=== PATIENT | female | born 1960 | race Caucasian/White ===

== ENCOUNTER 2021-07-11 13:58 | Outpatient (CLI) | payer MEDICARE, SELFPAY ==
--- NOTE | 2021-07-11 09:45 | DI.RAD_ITS ---
Exam(s) XR HIP LT COMPLETE AP PELVIS EXAM: XR HIP LT COMPLETE AP PELVIS CLINICAL HISTORY: left hip pain. TECHNIQUE: 2D digital imaging was performed. COMPARISON: No exams were available for comparison FINDINGS: There is no evidence of pelvic nor hip fracture. No obvious hip joint space narrowing. Mild degener ative changes, these being more evident in the left hip. No significant osseous lesions. Sacroiliac joints appear unremarkable pubic rami appear unremarkable IMPRESSION: Mild degenerative changes in the left hip. No fractures. Incidentally noted are calcifications in the central left side of the pelvis. These may be within ut erine fibroids and possibly in the left uterus. Other possibly would be within sigmoid diverticuli. DATA REPOSITORY: RADIATION DOSE DELIVERED:
== END 2021-07-11 13:59 | disposition home or self-care (01) ==
LOC: DIORS 13:59
PROVIDERS: PCP Nurse Practitioner Family; Referring Provider Nurse Practitioner Family; Visit Provider Student in an Organized Health Care Education/Training Program
DX: M25.552 Pain in left hip (principal); M16.12 Unilateral primary osteoarthritis, left hip
CPT/HCPCS: 99203; 73502

== ENCOUNTER 2023-02-20 03:23 | Outpatient (RCR) | payer OTHER, SELFPAY ==
[2023-02-13 10:10] VITALS: BP 135/84; PULSE 106
[2023-02-13] MEDS: IRON SUCROSE COMPLEX 200 MG in Normal Saline 100 ML 440 MG IVPB (10:35)
[2023-02-13] MEDS: Normal Saline Flush 10 ML SYR IVP (10:36)
[2023-02-20] MEDS: IRON SUCROSE COMPLEX 200 MG in Normal Saline 100 ML 440 MG IVPB (13:04)
[2023-02-20] MEDS: Normal Saline Flush 10 ML SYR IVP (13:04)
== END 2023-02-21 23:59 | disposition home or self-care (01) ==
LOC: INF 03:23
PROVIDERS: PCP Nurse Practitioner Family; Visit Provider Family Medicine
DX: K51.90 Ulcerative colitis, unspecified, without complications (principal)
CPT/HCPCS: 96365; J1756

== ENCOUNTER 2023-03-21 02:21 | Outpatient (RCR) | payer OTHER, SELFPAY ==
[2023-02-22 00:10] VITALS: BP 135/84; PULSE 106
[2023-02-27] MEDS: IRON SUCROSE COMPLEX 200 MG in Normal Saline 100 ML 440 MG IVPB (13:09)
[2023-02-27] MEDS: Normal Saline Flush 10 ML SYR IVP (13:09)
[2023-03-06] MEDS: Acetaminophen 325 MG TAB 650 MG PO (13:06)
[2023-03-06] MEDS: Loratidine 10 MG TAB (13:06)
[2023-03-06] MEDS: Normal Saline Flush 10 ML SYR IVP (13:06)
[2023-03-06] MEDS: VEDOLIZUMAB 300 MG in Normal Saline 250 ML 500 MG IVPB (13:27)
[2023-03-21 13:28] LABS: Abs Immature Grans 0.04 10^3/uL (0.0-0.06); Absolute Basophil Count 0.05 10^3/uL (0.0-0.2); Absolute Eosinophil Count 0.03 10^3/uL (0.0-0.7); Absolute Lymphocyte Count 1.66 10^3/uL (1.2-3.4); Absolute Monocyte Count 0.32 10^3/uL (0.1-0.8); Absolute Neutrophil Count 7.75 10^3/uL (1.2-6.7); Basophils % 0.5; Eosinophils % 0.3; HCT 43.8 % (36.0-46.0); HGB 13.8 g/dL (11.2-15.7); Immature Grans % 0.4; Lymphocytes % 16.9; MCH 25.7 pg (27.0-33.0); MCHC 31.5 % (32.0-36.0); MCV 82 fL (80-95); MPV 9.2 fL (8.0-11.0); Monocytes % 3.2; Neutrophils % 78.7; Platelet Count 364 10^3/uL (130-400); RBC 5.37 10^6/uL (3.93-5.22); RDW 22.9 % (11.7-14.6); RDW-SD 65.9 fL; WBC 9.85 10^3/uL (4.4-10.8)
[2023-03-21] MEDS: VEDOLIZUMAB 300 MG in Normal Saline 250 ML 500 MG IVPB (13:29)
[2023-03-21] MEDS: Normal Saline Flush 10 ML SYR IVP (13:29)
[2023-03-21 14:49] LABS: Diff Comment Diff Reviewed
[2023-03-21 14:50] LABS: Anisocytosis 2+
[2023-03-21 14:51] LABS: Iron 70 ug/dL (50-170); Total Iron Binding Capacity 343 ug/dL (250-450); Transferrin Sat 20 % (15-50)
[2023-03-21 14:53] LABS: Ferritin 79 ng/mL (8-252)
== END 2023-03-23 23:59 | disposition home or self-care (01) ==
LOC: INF 02:21
PROVIDERS: Nurse Practitioner Primary Care; PCP Nurse Practitioner Family; Visit Provider Family Medicine
DX: D50.9 Iron deficiency anemia, unspecified (principal)
CPT/HCPCS: 96365; 82728; 83540; 83550; 85025; J1756; J3380

== ENCOUNTER 2023-04-18 03:22 | Outpatient (RCR) | payer OTHER, SELFPAY ==
[2023-03-24 00:05] VITALS: BP 135/84; PULSE 106
[2023-04-18 13:20] LABS: Abs Immature Grans 0.05 10^3/uL (0.0-0.06); Absolute Basophil Count 0.07 10^3/uL (0.0-0.2); Absolute Eosinophil Count 0.08 10^3/uL (0.0-0.7); Absolute Monocyte Count 0.43 10^3/uL (0.1-0.8); Absolute Neutrophil Count 7.01 10^3/uL (1.2-6.7); Basophils % 0.7; Eosinophils % 0.8; HCT 42.9 % (36.0-46.0); HGB 13.6 g/dL (11.2-15.7); Immature Grans % 0.5; Lymphocytes % 21.6; MCH 26.5 pg (27.0-33.0); MCHC 31.7 % (32.0-36.0); MCV 84 fL (80-95); MPV 9.6 fL (8.0-11.0); Monocytes % 4.4; Platelet Count 337 10^3/uL (130-400); RBC 5.13 10^6/uL (3.93-5.22); RDW 20.7 % (11.7-14.6); WBC 9.74 10^3/uL (4.4-10.8)
[2023-04-18] MEDS: VEDOLIZUMAB 300 MG in Normal Saline 250 ML 500 MG IVPB (13:28)
[2023-04-18] MEDS: Normal Saline Flush 10 ML SYR IVP (13:28)
[2023-04-18 13:33] LABS: Anisocytosis 2+; Diff Comment RBC Morph Reviewed
[2023-04-18 13:53] LABS: ALT 20 U/L (14-59); AST 23 U/L (15-37); Albumin 3.6 g/dL (3.4-5.0); Alkaline Phosphatase 78 U/L (46-116); Anion Gap 11.4 mmol/L (3-11); BUN 20 mg/dL (7-18); Bilirubin, Total 0.3 mg/dL (0.2-1.0); C-Reactive Protein 0.29 mg/dL (0.0-0.3); CO2 23.6 mmol/L (21.0-32.0); CREATININE 1.1 mg/dL (0.55-1.02); Chloride 105 mmol/L (98-107); Estimated GFR 56.11 (mL/min/1.73m2); Glucose 103 mg/dL (74-106); Potassium 4.7 mmol/L (3.5-5.1); Sodium 140 mmol/L (136-145); Total Protein 7.1 g/dL (6.4-8.2)
[2023-04-18 14:20] LABS: Ferritin 27 ng/mL (8-252)
== END 2023-04-23 23:59 | disposition home or self-care (01) ==
LOC: INF 03:22
PROVIDERS: PCP Nurse Practitioner Family; Visit Provider Family Medicine
DX: K51.90 Ulcerative colitis, unspecified, without complications (principal)
CPT/HCPCS: 36415; 80053; 96365; 82728; 83540; 83550; 85025; 86140; J3380

== ENCOUNTER 2023-04-26 03:53 | Outpatient (RCR) | payer MEDICARE, OTHER, SELFPAY ==
[2023-04-26 13:06] LABS: Hemoglobin A1C 5.8 % (<5.7)
[2023-04-26 13:27] LABS: Ferritin 24 ng/mL (8-252)
[2023-04-26 13:34] LABS: Iron 59 ug/dL (50-170); Total Iron Binding Capacity 336 ug/dL (250-450); Transferrin Sat 18 % (15-50)
== END 2023-05-24 23:59 | disposition home or self-care (01) ==
LOC: INF 03:53
PROVIDERS: PCP Nurse Practitioner Family; Visit Provider Internal Medicine
DX: K51.90 Ulcerative colitis, unspecified, without complications (principal); D64.9 Anemia, unspecified; R73.03 Prediabetes
CPT/HCPCS: 36415; 82728; 83036; 83540; 83550

== ENCOUNTER 2023-06-13 02:55 | Outpatient (RCR) | payer MEDICARE, OTHER, SELFPAY ==
[2023-04-24 00:11] VITALS: BP 135/84; PULSE 106
[2023-06-01] MEDS: Normal Saline Flush 10 ML SYR IVP (13:00)
[2023-06-01] MEDS: IRON SUCROSE COMPLEX 200 MG in Normal Saline 100 ML 440 MG IVPB (13:01)
[2023-06-13] MEDS: VEDOLIZUMAB 300 MG in Normal Saline 250 ML 500 MG IVPB (13:25)
[2023-06-13] MEDS: Normal Saline Flush 10 ML SYR IVP (13:25)
== END 2023-06-23 23:59 | disposition home or self-care (01) ==
LOC: INF 02:55
PROVIDERS: PCP Nurse Practitioner Family; Visit Provider Family Medicine
DX: D50.9 Iron deficiency anemia, unspecified (principal)
CPT/HCPCS: 96365; J1756; J3380

== ENCOUNTER 2023-08-22 02:57 | Outpatient (RCR) | payer MEDICARE, OTHER, SELFPAY ==
[2023-06-24 00:10] VITALS: BP 135/84; PULSE 106
[2023-08-07] VITALS (7 sets, daily range): BP systolic 119–133; BP diastolic 72–86; PULSE 61–68; RESP 16–18; TEMP 36.2–36.7; O2SAT 95–97
[2023-08-07] MEDS: Normal Saline Flush 10 ML SYR IVP (12:21)
[2023-08-07] MEDS: inFLIXimab 600 MG in Normal Saline 250 ML 125 MG IVPB (12:21)
[2023-08-07 12:25] LABS: Iron 86 ug/dL (50-170); Total Iron Binding Capacity 320 ug/dL (250-450); Transferrin Sat 27 % (15-50)
[2023-08-22] VITALS (7 sets, daily range): BP systolic 122–145; BP diastolic 70–85; PULSE 69–85; RESP 17; TEMP 35.6–36.6; O2SAT 95–98
[2023-08-22] MEDS: Normal Saline Flush 10 ML SYR IVP (11:38)
[2023-08-22] MEDS: inFLIXimab 600 MG in Normal Saline 250 ML 125 MG IVPB (11:50)
[2023-08-22 12:12] LABS: Abs Immature Grans 0.07 10^3/uL (0.0-0.06); HCT 45.2 % (36.0-46.0); HGB 14.5 g/dL (11.2-15.7); MCH 28.7 pg (27.0-33.0); MCHC 32.1 % (32.0-36.0); MCV 90 fL (80-95); MPV 9.8 fL (8.0-11.0); Platelet Count 356 10^3/uL (130-400); RBC 5.05 10^6/uL (3.93-5.22); RDW 15.9 % (11.7-14.6); RDW-SD 52.5 fL; WBC 12.79 10^3/uL (4.4-10.8)
[2023-08-22 12:17] LABS: Absolute Basophil Count 0.13 10^3/uL (0.0-0.2); Absolute Eosinophil Count 0.13 10^3/uL (0.0-0.7); Absolute Lymphocyte Count 4.86 10^3/uL (1.2-3.4); Absolute Monocyte Count 1.28 10^3/uL (0.1-0.8); Diff Comment Manual Differential; RBC Morphology Normal
[2023-08-22 12:23] LABS: ALT 18 U/L (14-59); AST 6 U/L (15-37); Albumin 3.6 g/dL (3.4-5.0); Alkaline Phosphatase 81 U/L (46-116); Anion Gap 7.2 mmol/L (3-11); BUN 23 mg/dL (7-18); Bilirubin, Total 0.3 mg/dL (0.2-1.0); C-Reactive Protein 0.18 mg/dL (0.0-0.3); CO2 30.8 mmol/L (21.0-32.0); CREATININE 0.9 mg/dL (0.55-1.02); Calcium 9.2 mg/dL (8.5-10.1); Chloride 102 mmol/L (98-107); Estimated GFR 70.95 (mL/min/1.73m2); Glucose 94 mg/dL (74-106); Potassium 3.8 mmol/L (3.5-5.1); Sodium 140 mmol/L (136-145); Total Protein 7.6 g/dL (6.4-8.2)
[2023-08-28 00:40] LABS: Infliximab 53 mcg/mL (<=5.0)
== END 2023-08-23 23:59 | disposition home or self-care (01) ==
LOC: INF 02:57
PROVIDERS: PCP Nurse Practitioner Family; Visit Provider Family Medicine
DX: D50.9 Iron deficiency anemia, unspecified (principal); K51.011 Ulcerative (chronic) pancolitis with rectal bleeding; K51.90 Ulcerative colitis, unspecified, without complications
CPT/HCPCS: 36415; 80053; 82397; 96365; 96366; 83540; 83550; 85025; 86140; J1745

== ENCOUNTER 2023-09-19 01:10 | Outpatient (RCR) | payer MEDICARE, OTHER, SELFPAY ==
[2023-08-24 00:01] VITALS: BP 135/84; PULSE 106; RESP 17; TEMP 36.4
[2023-09-19] VITALS (7 sets, daily range): BP systolic 106–137; BP diastolic 70–86; PULSE 68–81; RESP 17; TEMP 35–36.2; O2SAT 96–98
[2023-09-19 11:26] LABS: HGB 13.8 g/dL (11.2-15.7); MCH 28.6 pg (27.0-33.0); MCHC 32.1 % (32.0-36.0); MCV 89 fL (80-95); MPV 9.3 fL (8.0-11.0); Platelet Count 338 10^3/uL (130-400); RBC 4.83 10^6/uL (3.93-5.22); RDW 14.5 % (11.7-14.6); RDW-SD 47.4 fL; WBC 11.58 10^3/uL (4.4-10.8)
[2023-09-19] MEDS: Normal Saline Flush 10 ML SYR IVP (11:31)
[2023-09-19] MEDS: inFLIXimab 600 MG in Normal Saline 250 ML 125 MG IVPB (11:31)
[2023-09-19 11:44] LABS: ALT 21 U/L (14-59); AST 13 U/L (15-37); Albumin 3.3 g/dL (3.4-5.0); Alkaline Phosphatase 81 U/L (46-116); Anion Gap -0.8 mmol/L (3-11); BUN 22 mg/dL (7-18); Bilirubin, Total 0.3 mg/dL (0.2-1.0); CO2 26.8 mmol/L (21.0-32.0); Calcium 9.1 mg/dL (8.5-10.1); Chloride 104 mmol/L (98-107); Estimated GFR 62.52 (mL/min/1.73m2); Glucose 89 mg/dL (74-106); Potassium 3.8 mmol/L (3.5-5.1); Sodium 130 mmol/L (136-145); Total Protein 7.2 g/dL (6.4-8.2)
[2023-09-25 23:24] LABS: Infliximab 61 mcg/mL (<=5.0)
== END 2023-09-23 23:59 | disposition home or self-care (01) ==
LOC: INF 01:10
PROVIDERS: PCP Nurse Practitioner Family; Visit Provider Family Medicine
DX: K51.90 Ulcerative colitis, unspecified, without complications (principal)
CPT/HCPCS: 36415; 80053; 82397; 85027; 96365; 96366; 86140; J1745

== ENCOUNTER 2023-11-14 01:20 | Outpatient (RCR) | payer MEDICARE, OTHER, SELFPAY ==
[2023-09-24 00:02] VITALS: BP 135/84; PULSE 106; RESP 17; TEMP 36.4
[2023-11-14] VITALS (7 sets, daily range): BP systolic 117–154; BP diastolic 76–94; PULSE 66–84; RESP 16–18; TEMP 35.7–36.6; O2SAT 95–99
[2023-11-14 11:24] LABS: Abs Immature Grans 0.01 10^3/uL (0.0-0.06); Absolute Basophil Count 0.07 10^3/uL (0.0-0.2); Absolute Eosinophil Count 0.04 10^3/uL (0.0-0.7); Absolute Lymphocyte Count 2.58 10^3/uL (1.2-3.4); Absolute Monocyte Count 0.52 10^3/uL (0.1-0.8); Absolute Neutrophil Count 3.69 10^3/uL (1.2-6.7); Eosinophils % 0.6; Immature Grans % 0.1; Lymphocytes % 37.3; MCH 28.4 pg (27.0-33.0); MCHC 32.6 % (32.0-36.0); MCV 87 fL (80-95); MPV 9.5 fL (8.0-11.0); Monocytes % 7.5; Neutrophils % 53.5; Platelet Count 346 10^3/uL (130-400); RBC 4.93 10^6/uL (3.93-5.22); RDW 14.1 % (11.7-14.6); RDW-SD 45.4 fL; WBC 6.91 10^3/uL (4.4-10.8)
[2023-11-14] MEDS: Normal Saline Flush 10 ML SYR IVP (11:29)
[2023-11-14] MEDS: inFLIXimab 600 MG in Normal Saline 250 ML 125 MG IVPB (11:29)
[2023-11-14 11:38] LABS: ALT 25 U/L (14-59); AST 20 U/L (15-37); Albumin 3.5 g/dL (3.4-5.0); Alkaline Phosphatase 85 U/L (46-116); Anion Gap 9.9 mmol/L (3-11); BUN 18 mg/dL (7-18); Bilirubin, Total 0.5 mg/dL (0.2-1.0); CO2 25.1 mmol/L (21.0-32.0); CREATININE 0.9 mg/dL (0.55-1.02); Calcium 9.1 mg/dL (8.5-10.1); Chloride 104 mmol/L (98-107); Estimated GFR 70.95 (mL/min/1.73m2); Glucose 108 mg/dL (74-106); Potassium 4.3 mmol/L (3.5-5.1); Sodium 139 mmol/L (136-145); Total Protein 7.4 g/dL (6.4-8.2)
[2023-11-14 11:39] LABS: C-Reactive Protein < 0.50 mg/dL (<or=0.5)
[2023-11-14 11:40] LABS: Hemoglobin A1C 5.9 % (<5.7)
[2023-11-17 02:27] LABS: Infliximab 23 mcg/mL (<=5.0)
== END 2023-11-22 23:59 | disposition home or self-care (01) ==
LOC: INF 01:20
PROVIDERS: Internal Medicine; PCP Nurse Practitioner Family; Visit Provider Family Medicine
DX: K51.90 Ulcerative colitis, unspecified, without complications; R73.03 Prediabetes
CPT/HCPCS: 36415; 80053; 82397; 96365; 96366; 83036; 85025; 86140; J1745

== ENCOUNTER → 2023-11-29 14:21 | Outpatient (BNVA) | payer MEDICARE, OTHER, SELFPAY | PROVIDERS: PCP Nurse Practitioner Acute Care; Referring Provider Nurse Practitioner Acute Care; Visit Provider Student in an Organized Health Care Education/Training Program | DX: M16.12 Unilateral primary osteoarthritis, left hip (principal) | CPT/HCPCS: 99213 ==

== ENCOUNTER 2024-01-09 04:14 | Outpatient (RCR) | payer MEDICARE, OTHER, SELFPAY ==
[2023-11-23 00:01] VITALS: BP 135/84; PULSE 106; RESP 17; TEMP 36.4
[2024-01-09] VITALS (8 sets, daily range): BP systolic 113–140; BP diastolic 62–92; PULSE 69–95; RESP 17; TEMP 34.9–36.1; O2SAT 94–100
[2024-01-09] MEDS: Normal Saline Flush 10 ML SYR IVP (11:07)
[2024-01-09 11:28] LABS: HCT 44.5 % (36.0-46.0); HGB 14.6 g/dL (11.2-15.7); MCH 29.3 pg (27.0-33.0); MCHC 32.8 % (32.0-36.0); MCV 89 fL (80-95); MPV 9.7 fL (8.0-11.0); Platelet Count 354 10^3/uL (130-400); RBC 4.98 10^6/uL (3.93-5.22); RDW 14.1 % (11.7-14.6); RDW-SD 45.8 fL; WBC 5.41 10^3/uL (4.4-10.8)
[2024-01-09 11:41] LABS: ALT 35 U/L (14-59); AST 23 U/L (15-37); Albumin 3.5 g/dL (3.4-5.0); Alkaline Phosphatase 91 U/L (46-116); Anion Gap 8.3 mmol/L (3-11); BUN 15 mg/dL (7-18); Bilirubin, Total 0.4 mg/dL (0.2-1.0); CO2 26.7 mmol/L (21.0-32.0); CREATININE 0.8 mg/dL (0.55-1.02); Calcium 8.7 mg/dL (8.5-10.1); Chloride 104 mmol/L (98-107); Estimated GFR 81.72 (mL/min/1.73m2); Glucose 96 mg/dL (74-106); Potassium 4.3 mmol/L (3.5-5.1); Sodium 139 mmol/L (136-145); Total Protein 7.3 g/dL (6.4-8.2)
[2024-01-09 11:52] LABS: Hemoglobin A1C 5.8 % (<5.7)
[2024-01-09 12:03] LABS: TSH (W/Ref FT4) 2.92 uIU/mL (0.36-3.74)
[2024-01-09] MEDS: inFLIXimab 600 MG in Normal Saline 250 ML 125 MG IVPB (12:16)
[2024-01-09 15:08] LABS: Calculated LDL 189 mg/dL (<100); Cholesterol 304 mg/dL (<200); HDL Cholesterol 48 mg/dL (40-60); Triglyceride 335 mg/dL (<150)
[2024-01-09 15:29] LABS: Vitamin D 25 Total 28.9 ng/mL (30-100)
== END 2024-01-22 23:59 | disposition home or self-care (01) ==
LOC: INF 04:14
PROVIDERS: Student in an Organized Health Care Education/Training Program; PCP Nurse Practitioner Acute Care; Visit Provider Family Medicine
DX: K51.011 Ulcerative (chronic) pancolitis with rectal bleeding (principal); D50.9 Iron deficiency anemia, unspecified; K51.90 Ulcerative colitis, unspecified, without complications; N18.2 Chronic kidney disease, stage 2 (mild); E78.5 Hyperlipidemia, unspecified; R73.9 Hyperglycemia, unspecified; E55.9 Vitamin D deficiency, unspecified
CPT/HCPCS: 36415; 80048; 80053; 80061; 82306; 85027; 96365; 96366; 83036; 84443; J1745

== ENCOUNTER 2024-03-05 00:56 | Outpatient (RCR) | payer MEDICARE, OTHER, SELFPAY ==
[2024-01-23 00:17] VITALS: BP 135/84; PULSE 106; RESP 17; TEMP 36.4
[2024-03-05] VITALS (7 sets, daily range): BP systolic 112–147; BP diastolic 65–89; PULSE 63–79; RESP 16–17; TEMP 34–35.1; O2SAT 94–98
[2024-03-05 11:33] LABS: HCT 44.4 % (36.0-46.0); HGB 14.4 g/dL (11.2-15.7); MCH 29.7 pg (27.0-33.0); MCHC 32.4 % (32.0-36.0); MCV 92 fL (80-95); MPV 9.4 fL (8.0-11.0); Platelet Count 301 10^3/uL (130-400); RBC 4.85 10^6/uL (3.93-5.22); RDW 14.5 % (11.7-14.6); RDW-SD 48.5 fL; WBC 12.14 10^3/uL (4.4-10.8)
[2024-03-05] MEDS: inFLIXimab 600 MG in Normal Saline 250 ML 125 MG IVPB (11:33)
[2024-03-05] MEDS: Normal Saline Flush 10 ML SYR IVP (11:34)
[2024-03-05 11:46] LABS: Anion Gap 9.3 mmol/L (3-11); BUN 23 mg/dL (7-18); CO2 26.7 mmol/L (21.0-32.0); CREATININE 1.1 mg/dL (0.55-1.02); Chloride 104 mmol/L (98-107); Estimated GFR 55.76 (mL/min/1.73m2); Glucose 96 mg/dL (74-106); Potassium 4.2 mmol/L (3.5-5.1); Sodium 140 mmol/L (136-145)
== END 2024-03-23 23:59 | disposition home or self-care (01) ==
LOC: INF 00:56
PROVIDERS: Student in an Organized Health Care Education/Training Program; PCP Nurse Practitioner Acute Care; Visit Provider Family Medicine
DX: K51.90 Ulcerative colitis, unspecified, without complications; Z01.818 Encounter for other preprocedural examination
CPT/HCPCS: 36415; 80048; 85027; 96365; 96366; J1745

== ENCOUNTER 2024-04-02 15:19 | Observation (INO) | payer MEDICARE, OTHER, SELFPAY ==
[2024-04-02] VITALS (32 sets, daily range): BP systolic 119–179; BP diastolic 56–152; PULSE 54–80; RESP 8–25; TEMP 36.1–36.9; O2SAT 85–99; BMI 45.6
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
[2024-04-02] MEDS: Acetaminophen 500 MG TAB 1000 MG PO ×2 (06:57→16:20)
[2024-04-02] MEDS: Lactated Ringers 1,000 ML 80 ML IV ×2 (06:57→16:01)
[2024-04-02] MEDS: Celecoxib 200 MG CAP 400 MG PO (06:57)
[2024-04-02] MEDS: Scopolamine 1 MG/3 DAYS PATCH TD (06:58)
[2024-04-02] MEDS: ceFAZolin 2 GM/50 ML BAG IVPB (08:04)
[2024-04-02] MEDS: TRANEXAMIC ACID/SOD. CHL. 1,000 MG/100 ML BAG 600 MG IVPB (08:11)
--- NOTE | 2024-04-02 09:03 | DI.RAD_ITS ---
Exam(s) XR HIP LT IN OR EXAM: XR HIP LT IN OR CLINICAL HISTORY: Osteoarthritis of left hip TECHNIQUE: 2D and realtime digital imaging was performed. CONTRAST MATERIAL: Refer to procedure report. COMPARISON: CR XR Hip 2-3 Views Left from 08/30/2023 FINDINGS: Fluoroscopy was provided for Dr. Haque during the performance of a left total hip replacement. P lease refer to the procedure report for complete details. Ka,r=4.84 mGy IMPRESSION: RADIATION DOSE DELIVERED: 0.0 2128.0 0
[2024-04-02] MEDS: Droperidol 5 MG/2 ML VIAL 0.625 MG IVP ×2 (09:35→09:58)
[2024-04-02] MEDS: HYDROmorphone 2 MG/ML SYR IVP (10:28)
--- NOTE | 2024-04-02 10:54 | W.PM.OP ---
Date of service: 04/02/24 Time of Service: 07:50 Operative Note Operative Note DATE OF PROCEDURE: 04/02/24 PRE-OP DIAGNOSIS: Left Hip Osteoarthritis POST-OP DIAGNOSIS: same PROCEDURE: Left Anterior Total Hip Arthroplasty with Intraoperative Navigation SURGEON: Rg Haque NURSING HOME AIDE: Juan Gonzalez ANESTHESIA TYPE: Spinal Refer to Anesthesia Record ESTIMATED BLOOD LOSS: 200 PATHOLOGY: none sent TOURNIQUET TIME: 0 COMPLICATIONS: None Patient was transported to: PACU Patient's condition: stable Implants: 1. Depuy [place] Acetabular Component, 52mm 2. Depuy Acetabular Liner, [id number] 3. Depuy Actis Standard Collared Femoral Stem, Size 5 4. Depuy Altrx Ceramic Femoral Head, Size 36+5mm Indications: I have seen Ariane in clinic for symptoms of hip arthritis, confirmed with radiographic findings. Ariane has exhausted nonoperative methods and was having significant limitations in daily function and desired better function and less pain. I discussed the technical details of a hip replacement. I explained the risks of the procedure to include, but not limited to, bleeding, infection, pain, stiffness, fracture, damage to nerves and vessels, damage to muscles and tendons, loosening, instability, leg length inequality, need for repeat procedure, blood clot and cardiopulmonary demise. Despite these risks, she elected to proceed. Findings: There was significant signs of arthritis throughout the hip along with dense synovitis. Procedure Description: Ariane was greeted in the preoperative holding area where the correct side was identified and marked. The consent was reviewed with the patient and signed. The history and physical was updated. All questions were answered. She was taken back to the operating room. A spinal anesthestic was then administered. The feet were wrapped with cast padding and Coban and then placed into the boot liners and then into the boots. Care was taken to protect the skin and make sure the heels were fully down and the boots were stable. The patient was then positioned onto the HANA table. Both legs were held in a neutral position. SCDs were applied. The patient was then slid down onto a peroneal post. Prophylactic antibiotics in the form of Cefazolin were administered. 1g of Tranxemic Acid was given intravenously within 30 minutes of incision. The right leg was then prepped with Chloraprep and draped in a standard fashion. A second prep with Chloraprep was performed prior to placement of a shower-curtain type drape with Iodine impregnated skin protection. A timeout to confirm correct identity, side and site, procedure, allergies, anesthesia, and medical concerns was performed. An obliquely oriented incision was made starting lateral to the ASIS and running distal over the Tensor Fascia Tona (TFL) muscle belly toward the fibular head, approximately 10cm. The skin and soft tissue was dissected sharply, through Ulises?s fascia, and to the fascia of the TFL. With the fascia and superior border of the IT band identified, the fascia was incised with a new knife just above any perforators from the IT band. The TFL muscle belly was bluntly dissected away from the fascia and moved laterally. The fat between TFL and rectus was identified to ensure the dissection was not within the TFL. Blunt dissection created space between abductors and the capsule and retractor was placed over the lateral femoral neck. The fibers of the rectus femoris tendon were identified and these were freed from the anterior capsule. A second cobra retractor was placed around the medial femoral neck. The TFL was further retracted laterally to show the deep fascia. Careful dissection through this layer identified three main crossing vessels of the lateral femoral circumflex. These were cauterized in multiple locations and then cut without any noticeable bleeding. The TFL was further released bluntly from the deep fascia to expose anterior hip capsule and fat The Lul orthopaedic retractor was then placed beneath the TFL and against sartorius and medial soft tissues to protect and retract the soft tissues. A T-capsulotomy was then performed starting at the superior lateral acetabulum and moving distally to the intertrochanteric ridge. These capsular flaps were tagged with a No. 1 Ethibond and elevated from within. The capsular flaps were released to the shoulder of the lateral neck and to the lesser trochanter to give excellent visualization of the proximal femur. A neck osteotomy was performed using an oscillating saw based on preoperative templates. This cut started in the shoulder and of the lateral neck and exited medially. The saw was at all times directed medially to avoid injury to the greater trochanter. Gross traction was applied to the leg and the osteotomy opened. The femoral head was removed with a corkscrew, making sure to protect the TFL on its exit. Traction was released after head removal. This was measured on the back table to determine the starting reamer size. Portions of the rectus obscuring visualization were minimally elevated off the superior acetabulum. An anterior retractor was placed over the anterior wall between capsule and labrum and attached to the Gripper retraction system. The femur was rotated to 90 degrees and medial capsule was fully released until the lesser trochanter was palpable and visible; the femur was returned to 30 degrees. A posterior retractor was placed similarly between capsule and labrum. This provided excellent visualization. The contents of the cotyloid fossa were removed with electrocautery and the labrum was removed with a knife. There was a notable floor osteophyte. There was significant chondromalacia of the superior acetabulum. There is also significant synovitis seen within the hip which was debrided with electrocautery and a rongeur. Acetabular reaming began with a 46mm reamer. This first reaming was directed anterior to posterior and medial to get down to the true floor. This was inspected and reamed until the true floor was reached. The anterior retractor was then released and entry and exit was provided by traction on the capsular flaps. I then reamed sequentially up to a 52mm reamer where good fit was obtained. The larger reamers were oriented based on anatomical reference of the anterior and lateral lopez to ensure proper abduction and anteversion. Positioning and size was confirmed with the fluoroscopy. A 52mm Depuy Unadilla acetabular component was selected. The acetabulum was reamed around the periphery with the selected acetabular size to prevent a rim fit. The deep tissues were irrigated. The acetabular component was then impacted in a position of about 40-45 degrees of abduction and 15-20 degrees of anteversion, using the patient?s anatomy as the ultimate landmark. Fluoroscopy was used to confirm this. There was excellent body trimmer upholsterer of the acetabular component and the inserting handle was removed. The acetabular liner, Depuy [id number] polyethylene liner, was inserted and lined up with the tines of the acetabular component. There was no soft tissue interposition. The liner was then impacted into position and confirmed to be well-seated. A portion of the luz-articular cocktail was then injected around the acetabulum into the capsule and periosteum. This cocktail consisted of 123mg of Ropivacaine, 0.25mg of Epinephrine, 0.04mg of Clonidine, and 15mg of Ketorolac, diluted to 50cc. The leg was rotated to 120 degrees. Any remaining medial capsule was released until the lesser trochanter was easily palpable. A retractor was placed medially. The lateral capsule was further released into the shoulder to allow access to the greater trochanter. A Feldman retractor was placed over the greater trochanter which allowed the trochanter to flip in front of the capsule for excellent exposure. The leg was brought down into maximal extension and 20 degrees of adduction while ensuring there was no impingement on the acetabulum. Any remnant capsule within the trochanter was released. Piriformis and obturator externis were identified and protected. There was excellent access to the proximal femur. The lateral neck remnant was removed with a rongeur. A blunt canal probe was used to identify the canal and trajectory for later broaching. A box osteotome initiated the broach course. A small curved rasp and a curved curette were used to work laterally. Broaching then began with a starter Actis broach. This was inserted manually around the trochanter and into the canal before mallet blows. The broach was seated to a few millimeters below the cut level based on the neck cut and the preoperative template. Sequential broaching was continued with the [employer] pneumatic broaching device until a tight fit was obtained with good rotational control of the femur. A trial standard neck was inserted along with a +5 trial head. The leg was brought out of extension and adduction and then reduced with traction and internal rotation. The leg was stable anteriorly in a position of 30 degrees of extension and 90 degrees of external rotation. Fluoroscopy was used to ensure there was no fracture and the stem was seated well. Leg lengths were checked with an AP pelvis and pelvic reference points. [employer] navigation system was used to confirm appropriate positioning and leg length and offset. This showed correct offset correction although slightly long and leg length. The stem was then advanced 2 to 3 mm. Once content with the desired offset and leg lengths, the leg was brought back into extension, external rotation and adduction. The periosteum and surrounding tissue was injected with remaining portion of the luz-articular cocktail. The proximal femur was irrigated as well as the deep tissues. The [employer] standard collared stem, size 5, was then manually inserted into the proximal femur making sure to control rotation. It was then malleted into position with light blows, giving breaks to allow bone expansion and decrease risk of fracture. The selected Depuy Altrx Ceramic Head, size 36+5mm, was then placed onto the clean and dry trunnion and secured with impaction onto the tapered fit. The leg was brought back out of extension and adduction and reduced with traction and internal rotation. Stability was confirmed with no shuck at 90 degrees of external rotation and 30 degrees of extension. No impingement through range of motion arc. Final x-ray images were obtained with fluoroscopy to confirm adequate positioning and no intraoperative fracture. The deep tissues were thoroughly irrigated with Surgiphor, betadine solution. This was allowed to sit in the wound for 3 minutes before being thoroughly irrigated out with normal saline. The capsule was then reapproximated with the previously placed Ethibond sutures. The TFL fascia was finally closed with a No. 2 Stratafix, barbed suture. Deep tissues were then reapproximated with 0 Vicryl and a running 2-0 Vicryl. The skin was closed with a running 4-0 Monocryl in a subcuticular fashion. This was reinforced with skin glue. A Mepilex silver dressing was applied. At the end of the case, all counts were correct. Ariane was transferred to the hospital bed without difficulty and suffering no apparent complication. Ariane has a good prognosis although guarded due to her significant colitis, Remicade use, and notable anxiety. Physical therapy will start today and without restrictions, weight-bearing as tolerated. Aspirin 81mg BID will be used for DVT prophylaxis.
[2024-04-02] MEDS: Ondansetron 4 MG/2 ML VIAL IVP (10:58)
[2024-04-02] MEDS: Haloperidol 5 MG/ML VIAL IV (12:57)
--- NOTE | 2024-04-02 15:45 | W.ANESPOSTOP ---
Postoperative Evaluation Date, Time and Location Date Performed: 04/02/24 Time Performed: 15:57 Patient Location: Day Surgery Unit Vital Signs Most Recent Imported Vital Signs: Most Recent Vital Signs Temp Pulse Resp BP Pulse Ox 36.4 C L 80 25 H 147/80 H 92 04/02/24 13:01 04/02/24 13:20 04/02/24 13:20 04/02/24 13:23 04/02/24 13:20 Pain Score Most Recent Pain Score: Most Recent Pain Score Pain Level 5 04/02/24 10:56 Assessment Mental Status: Awake (Alert & Oriented to Patient Baseline) Airway and Respiratory Function: Patent airway with normal (patient baseline) respiratory exam Cardiovascular Function: Hemodynamically Stable Hydration Status: Adequately Hydrated Nausea & Vomiting: Active Nausea or Vomiting Present Nausea and Vomiting Management: Nausea and vomiting active, being managed as an inpatient Pain: Pain is Moderate or Severe Postoperative Pain Management: Pain being addressed with medication and Ongoing pain, patient will be managed as an inpatient Peripheral Nerve Block: Patient did not receive a nerve block Postoperative Comments:: Discussed care with patient at bedside. Patient seen earlier in the day, now being treated inpatient.
[2024-04-02] MEDS: Normal Saline Flush 10 ML SYR IV (16:02)
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
[2024-04-02] MEDS: Rizatriptan 10 MG TAB PO (18:50)
[2024-04-02] MEDS: traMADol 50 MG TAB PO (22:30)
[2024-04-03] MEDS: Acetaminophen 500 MG TAB 1000 MG PO ×3 (00:30→21:58)
[2024-04-03] MEDS: traMADol 50 MG TAB PO (02:27)
[2024-04-03 03:11] VITALS: BP 147/79; PULSE 70; RESP 19; TEMP 36.5; O2SAT 95
[2024-04-03] MEDS: Rizatriptan 10 MG TAB PO (07:46)
[2024-04-03 08:10] VITALS: BP 133/67; PULSE 97; RESP 18; TEMP 36.4; O2SAT 97
[2024-04-03] MEDS: Esomeprazole 40 MG CAPCR PO (09:08)
--- NOTE | 2024-04-03 10:48 | PTTR_ITS ---
PT Notes Visit Reasons: L THR Inpatient Physical Therapy Treatment Note [facility] Date: 04/03/24 PRECAUTIONS: L ANDREZ SUBJECTIVE: Pt reports that she is still experiencing a lot of [place]. She states that she still has some dizziness but it is better than this am. Pt re ports that she is also struggling with a migraine. OBJECTIVE: Therapeutic Activities (33908c[2]): Direct one-on-one instruction in dynamic activities to improve functional performance. ? BED MOBILITY/TRANSFERS? Supine-sit: Min Assist x 1? Sit-supine: Min assist x1 ? Sit-stand: CGA? Stand-sit: CGA ? Bed-Chair: CGA ? Provided skilled cues and instruction on performance and technique throughout. ? GAIT? Assistive Device: FWW ? Weight bearing: SBAT L LE Assist: CGA ? Distance:? Approx 5 steps to chair ? Therapeutic Exercises ([id number][]): Direct one-on-one instruction in therapeutic exercises to develop strength, endurance, range of motion and flexibility. ? Exercises ? Ankle pumps x 10 Heel slides x 5 G.S. x 5 LAQ assist with L LE x 5 Seated mini march with assist L LE x 5 ? ASSESSMENT:? Pt is having a lot of difficulty with Tammy and her migrain and it is not allowing her to move around or transfer well. PLAN: Cont as per PT POC. TREATMENT CODE/TIME: 8:40-8:50 10:20-10:40 (10) (20) DISCHARGE RECOMMENDATION:
[2024-04-03] MEDS: predniSONE 5 MG TAB 15 MG PO (11:07)
[2024-04-03] MEDS: Normal Saline Flush 10 ML SYR IVP (11:08)
[2024-04-03] MEDS: cefTRIAXone 1 GM/50 ML BAG IVPB (11:09)
--- NOTE | 2024-04-03 11:59 | W.PM.PROGNOT ---
Date of Service Date of service: 04/03/24 Time of Service: 11:59 Assessment and Plan Assessment and plan (1) Postoperative nausea: Status: Acute Assessment and plan: Ariane continues to have nausea which is limiting. It has been completely refractory to any interventions. She has made improvements with the lights off and slowly taking in some food and drink. Continue supportive care. Meds as needed. Not ready to go home due to this persistence. (2) Osteoarthritis of left hip: Status: Acute Assessment and plan: s/p L ANDREZ. Overall doing well. WBAT. Up with PT. ASA 81mg BID for DVT prophylaxis. Tramadol for pain but causing nausea. Will use higher dose of Prednisone, titrating back to 10mg. Subjective Subjective Interval history since last seen: Ariane reports to be doing better but still with notable nausea, although improved. Pain is present around the hip but feels to be getting better. She has not wanted to take any additional medications due to nausea. Exam Narrative Exam Narrative: Sitting up in the bed. I help her to the side of the bed where she demontrates active motion of the hip and knee. Dressing c/d/i. +ADF/APF/EHL/FHL. SILT DP/SP/Tib. +PT/DP Objective Last Vital Signs Temp 36.4 C L 04/03/24 08:10 Pulse 97 H 04/03/24 08:10 Resp 18 04/03/24 08:10 BP 133/67 04/03/24 08:10 Pulse Ox 97 04/03/24 08:10 Time Spent with Patient Time Spent with Patient: 25-34 minutes Time was spent: preparing to see the patient(eg.review tests), ordering medications,tests, procedures, referring, communicating with other health home care chaplain, indepentently interpreting results and counseling the patient
--- NOTE | 2024-04-03 12:08 | PHA.REVIEW2 ---
Pharmacy Admission Review Admission Clinical Review Admission Pharmacy Review: ciprofloxacin HCl (From Cipro) Allergy (Mild, Verified 04/02/24 06:45) Other (See Comment) amitriptyline Allergy (Verified 04/02/24 06:45) Other (See Comment) amoxicillin Allergy (Verified 04/02/24 06:45) Other (See Comment) duloxetine HCl (From Cymbalta) Allergy (Verified 04/02/24 06:45) Other (See Comment) erythromycin base Allergy (Verified 04/02/24 06:45) Other (See Comment) pregabalin (From Lyrica) Allergy (Verified 04/02/24 06:45) Other (See Comment) Sulfa (Sulfonamide Antibiotics) Allergy (Verified 04/02/24 06:45) Other (See Comment) venlafaxine HCl (From Effexor) Allergy (Verified 04/02/24 06:45) Other (See Comment) Resuscitation Status Full Code Height 5 ft 4 in Weight 120.656 kg Pharmacy Admission Review Renal Dosing Medications needing adjustments: Reviewed (CrCl 65.26 mL/min) List of meds needing interventions: Current medications are okay Anticoagulation DVT Prophylaxis: Reviewed (SCDs/TEDs) Opiate Usage Evaluate Pain Scale/Pains Meds: Reviewed (PRN hydromorphone and oxycodone) Scheduled Bowel Reg ordered if on Opiates?: No (PRN docusate/Miralax) Relevant Labs Electrolytes, C-Reactive P, ESR: Reviewed Cardiac Review BP, HR, EF%: Reviewed (BP 133/67 and HR 97) QTc Review QTc: Reviewed (No EKG on file) IV to PO Switch IV Medications: Reviewed (hydromorphone, lorazepam, ondansetron - per progress note still experiencing nausea) Home Meds Home Med List reviewed: Intervened Relevent Home Meds Not ordered & why?: Advair, calcium carbonate, Epipen (PRN), vitamin D2, Flonase (PRN), Remicade (infusion), pantoprazole and sumatriptan (PRN) Reached out to provider about missing home meds and potential changes to home med list. Waiting to hear back Recently filled but not on home med list: atorvastatin, sucralfate and buspirone 15mg. Called nursing to see if patient is currently taking these. Waiting for nursing to talk to patient and call me back. Current Meds Current Medication Order Review: Reviewed Comments: Prednisone increased today from 15mg daily to 20mg daily Pharmacy Antibiotic Review Comments: Patient received 1 time dose of ceftriaxone but no order to continue as of right now
--- NOTE | 2024-04-03 12:56 | PT.INTREAT ---
PT Notes Visit Reasons: L THR Inpatient Physical Therapy Treatment Note [facility] Date: 04/03/24 PRECAUTIONS:WBAT LLE SUBJECTIVE: Ariane states that she gets very sore after walking. Her nausea is now under control. She is agreeable to walking, although not far. OBJECTIVE: ? Therapeutic Activities (60479y1): Direct one-on-one instruction in dynamic activities to improve functional performance. ? BED MOBILITY/TRANSFERS? Sit-stand: CGA with cues for technique? Stand-sit: CGA ? GAIT? Assistive Device: FWW? Weight bearing: WBAT Assist: CGA ? Distance:? 25' ? Deviation: cues for equipment management and safety ? Instruction in LAQ, 5 reps, breaks between, AAROM with 75% assist ASSESSMENT:? Improving mobility and independence, but with continued pain and limitations in activity tolerance. PLAN: Continue progressing as tolerated TREATMENT CODE/TIME: 5260-4662 (TA) DISCHARGE RECOMMENDATION: SNF vs HH PT
[2024-04-03] MEDS: predniSONE 5 MG TAB PO (14:29)
[2024-04-03 16:14] VITALS: BP 138/68; PULSE 92; RESP 18; TEMP 36.6; O2SAT 97
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
[2024-04-03 19:00] VITALS: BP 136/68; PULSE 85; RESP 18; TEMP 36.6; O2SAT 97
[2024-04-03] MEDS: busPIRone 5 MG TAB 12.5 MG PO (19:47)
[2024-04-03] MEDS: Gabapentin 300 MG CAP 900 MG PO (20:32)
[2024-04-04 06:58] VITALS: BP 106/60; PULSE 83; RESP 18; TEMP 36.6; O2SAT 96
[2024-04-04] MEDS: Esomeprazole 40 MG CAPCR PO (07:12)
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
[2024-04-04] MEDS: Acetaminophen 500 MG TAB 1000 MG PO (08:48)
--- NOTE | 2024-04-04 12:05 | PDOC.CMPRO ---
Date of service: 04/04/24 Time of Service: 12:05 Care Management Progress Note Progress Note Text Progress Note Text: Ariane was admitted on 04/03/24 for a left total hip replacement. The surgery went well however she developed significant nausea post-operatively and stayed overnight. This morning she felt much better and did well with PT. She was discharged home and will follow up with her orthopedic surgeon and will likely begin outpatient PT in a couple of weeks. Discharge Potential Discharge Needs: Surgical F/U Appt (Orthopedic surgeon) Anticipated Barriers to Discharge: None Identified Patient/Family Education Needs: Review discharge instructions, discuss Ask Me Three Transportation: Private vehicle Plan: Ariane will discharge home with no new services at this time. She will follow up with her surgeon and plan of care and transport with her . SDOH(Care Management) Screening Will the Patient Participate in the Screening?: Yes Do you worry about having a steady place to live?: yes In the past 12 months, have you had to go without electric, gas, oil or water in your home?: no Have you or anyone in your house had to go without enough food to eat?: no Has lack of transportation kept you from medical appointments or from doing things needed for daily living?: no Has anyone in your support network made you feel unsafe for any reason?: no Health Related Social Needs Health related social needs: housing instability, housed, with risk of homelessness(Z59.811)
== END 2024-04-04 09:52 | disposition home or self-care (01) | DRG 470 ==
LOC: MS 04-03 08:32
PROVIDERS: Admitting Provider Student in an Organized Health Care Education/Training Program; PCP Nurse Practitioner Acute Care; Visit Provider Student in an Organized Health Care Education/Training Program
PROC: 0SRB04A Replacement of Left Hip Joint with Ceramic on Polyethylene Synthetic Substitute, Uncemented, Open Approach (ICD-10-PCS; CPT 27130; principal; 2024-04-02 07:30)
DX: M16.12 Unilateral primary osteoarthritis, left hip (principal); K51.80 Other ulcerative colitis without complications; K91.89 Other postprocedural complications and disorders of digestive system; Z68.42 Body mass index [BMI] 45.0-49.9, adult; N18.2 Chronic kidney disease, stage 2 (mild); F43.10 Post-traumatic stress disorder, unspecified; F41.9 Anxiety disorder, unspecified; J45.909 Unspecified asthma, uncomplicated; E66.9 Obesity, unspecified; E55.9 Vitamin D deficiency, unspecified; K59.00 Constipation, unspecified; F32.A Depression, unspecified; K21.9 Gastro-esophageal reflux disease without esophagitis; M79.7 Fibromyalgia; L40.9 Psoriasis, unspecified; L28.0 Lichen simplex chronicus; E78.5 Hyperlipidemia, unspecified; G47.00 Insomnia, unspecified; I12.9 Hypertensive chronic kidney disease with stage 1 through stage 4 chronic kidney disease, or unspecified chronic kidney disease; G43.909 Migraine, unspecified, not intractable, without status migrainosus; E66.01 Morbid (severe) obesity due to excess calories; F10.21 Alcohol dependence, in remission; R11.0 Nausea
CPT/HCPCS: 27130; 20985; C1776; 97162; 97530; 73501; G0378; J0690; J0696; J1100; J1170; J1630; J1720; J1790; J2001; J2250; J2401; J2405; J2704; J3010; J7512

== ENCOUNTER 2024-04-14 15:48 | Outpatient (CLI) | payer MEDICARE, OTHER, SELFPAY ==
--- NOTE | 2024-04-14 14:15 | DI.RAD_ITS ---
Exam(s) XR HIP LT COMPLETE AP PELVIS EXAM: XR HIP LT COMPLETE AP PELVIS CLINICAL HISTORY: 1st post op S/P L ANDREZ. TECHNIQUE: 2D digital imaging was performed. COMPARISON: CR XR Hip 2-3 Views Left from 08/30/2023 FINDINGS: Two views There is stable position alignment of the components of the recently placed left hip prosthesis (03/24) No fracture or loosening evident. IMPRESSION: Stable satisfactory appearance DATA REPOSITORY: RADIATION DOSE DELIVERED:
== END 2024-04-14 15:49 | disposition home or self-care (01) ==
PROVIDERS: PCP Nurse Practitioner Acute Care; Referring Provider Nurse Practitioner Acute Care; Visit Provider Student in an Organized Health Care Education/Training Program
DX: Z96.642 Presence of left artificial hip joint (principal); Z47.1 Aftercare following joint replacement surgery
CPT/HCPCS: 73502

== ENCOUNTER → 2024-04-21 14:26 | Outpatient (BNVA) | payer MEDICARE, OTHER, SELFPAY | PROVIDERS: PCP Nurse Practitioner Acute Care; Visit Provider Student in an Organized Health Care Education/Training Program | DX: Z47.1 Aftercare following joint replacement surgery (principal); Z96.642 Presence of left artificial hip joint ==

== ENCOUNTER 2024-04-30 02:14 | Outpatient (RCR) | payer MEDICARE, OTHER, SELFPAY ==
[2024-03-24 00:02] VITALS: BP 135/84; PULSE 106; RESP 17; TEMP 36.4
[2024-04-30] VITALS (7 sets, daily range): BP systolic 124–144; BP diastolic 81–86; PULSE 63–83; RESP 17; TEMP 36–36.8; O2SAT 96–99
[2024-04-30] MEDS: Normal Saline Flush 10 ML SYR IVP (11:12)
[2024-04-30 11:13] LABS: Abs Immature Grans 0.04 10^3/uL (0.0-0.06); Absolute Basophil Count 0.07 10^3/uL (0.0-0.2); Absolute Eosinophil Count 0.17 10^3/uL (0.0-0.7); Absolute Lymphocyte Count 3.78 10^3/uL (1.2-3.4); Absolute Monocyte Count 0.77 10^3/uL (0.1-0.8); Absolute Neutrophil Count 3.24 10^3/uL (1.2-6.7); Basophils % 0.9 %; Eosinophils % 2.1 %; HCT 43.2 % (36.0-46.0); Immature Grans % 0.5 %; Lymphocytes % 46.8 %; MCH 29.9 pg (27.0-33.0); MCHC 32.4 % (32.0-36.0); MCV 92 fL (80-95); MPV 9.2 fL (8.0-11.0); Monocytes % 9.5 %; Neutrophils % 40.2 %; Platelet Count 359 10^3/uL (130-400); RBC 4.69 10^6/uL (3.93-5.22); RDW 14.6 % (11.7-14.6); RDW-SD 49.2 fL; WBC 8.07 10^3/uL (4.4-10.8)
[2024-04-30] MEDS: inFLIXimab 600 MG in Normal Saline 250 ML 125 MG IVPB (11:33)
[2024-04-30 11:35] LABS: ALT 43 U/L (14-59); AST 28 U/L (15-37); Albumin 3.5 g/dL (3.4-5.0); Alkaline Phosphatase 127 U/L (46-116); Anion Gap 8.6 mmol/L (3-11); BUN 16 mg/dL (7-18); Bilirubin, Total 0.44 mg/dL (0.2-1.0); C-Reactive Protein 0.82 mg/dL (<or=0.5); CO2 29.4 mmol/L (21.0-32.0); CREATININE 0.9 mg/dL (0.55-1.02); Calcium 9.4 mg/dL (8.5-10.1); Chloride 100 mmol/L (98-107); Estimated GFR 70.95 (mL/min/1.73m2); Glucose 93 mg/dL (74-106); Potassium 3.7 mmol/L (3.5-5.1); Sodium 138 mmol/L (136-145); Total Protein 7.7 g/dL (6.4-8.2)
[2024-05-07 10:16] LABS: Infliximab 15 mcg/mL (<=5.0)
== END 2024-05-24 23:59 | disposition home or self-care (01) ==
LOC: INF 02:14
PROVIDERS: PCP Nurse Practitioner Acute Care; Visit Provider Family Medicine
DX: K51.011 Ulcerative (chronic) pancolitis with rectal bleeding (principal); Z01.818 Encounter for other preprocedural examination
CPT/HCPCS: 36415; 80048; 80053; 82397; 85027; 96365; 96366; 85025; 86140; J1745

== ENCOUNTER 2024-05-05 15:51 | Outpatient (CLI) | payer MEDICARE, OTHER, SELFPAY ==
--- NOTE | 2024-05-05 15:20 | DI.RAD_ITS ---
Exam(s) XR HIP RT COMPLETE AP PELVIS EXAM: XR HIP RT COMPLETE AP PELVIS CLINICAL HISTORY: R hip pain. TECHNIQUE: 2D digital imaging was performed. COMPARISON: CR XR HIP LT COMPLETE AP PELVIS from 04/14/2024 FINDINGS: Two views Left hip prosthesis appears stable. No evidence of fracture nor joint space narrowing in the opposite-right hip. Additional lateral view of the right hip reveals a small femoral head osteophyte. No osseous lesions. Bone density normal. IMPRESSION: As above. DATA REPOSITORY: RADIATION DOSE DELIVERED:
== END 2024-05-05 15:52 | disposition home or self-care (01) ==
LOC: DIORS 15:52
PROVIDERS: PCP Nurse Practitioner Acute Care; Visit Provider Physician Assistant
DX: M25.551 Pain in right hip (principal); Z47.1 Aftercare following joint replacement surgery; Z96.642 Presence of left artificial hip joint
CPT/HCPCS: 73502

== ENCOUNTER → 2024-05-12 10:31 | Outpatient (BNVA) | payer MEDICARE, OTHER, SELFPAY | PROVIDERS: PCP Nurse Practitioner Acute Care; Visit Provider Student in an Organized Health Care Education/Training Program | DX: Z47.1 Aftercare following joint replacement surgery (principal); M16.11 Unilateral primary osteoarthritis, right hip; Z96.642 Presence of left artificial hip joint ==

== ENCOUNTER 2024-06-03 11:15 | Observation (INO) | payer MEDICARE, OTHER, SELFPAY ==
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
[2024-06-03] VITALS (35 sets, daily range): BP systolic 104–174; BP diastolic 52–131; PULSE 54–90; RESP 12–33; TEMP 35.8–36.8; O2SAT 92–100; BMI 45.6
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
[2024-06-03] MEDS: Lactated Ringers 1,000 ML 80 ML IV ×2 (11:33→18:51)
[2024-06-03] MEDS: OLANZapine 10 MG TAB PO (11:33)
[2024-06-03] MEDS: ceFAZolin 3,000 MG in Normal Saline 100 ML 200 MG IV (12:27)
[2024-06-03] MEDS: TRANEXAMIC ACID/SOD. CHL. 1,000 MG/100 ML BAG 600 MG IVPB (12:35)
--- NOTE | 2024-06-03 13:47 | DI.RAD_ITS ---
Exam(s) XR HIP RT IN OR EXAM: XR HIP RT IN OR CLINICAL HISTORY: OSTEOARTHRITIS RIGHT HIP. TECHNIQUE: 2D and realtime digital imaging was performed. COMPARISON: No exams were available for comparison FINDINGS: Hard copy image shows placement of a right hip prosthesis. The alignment appears satisfactory. Please see procedure note for details. Fluoro time: 57.7seconds RADIATION DOSE DELIVERED: Ka,r=9.93 mGy
[2024-06-03] MEDS: LORazepam 2 MG/ML VIAL 0.5 MG IVP ×2 (14:35→14:50)
[2024-06-03] MEDS: fentaNYL 100 MCG/2 ML VIAL IVP (14:45)
--- NOTE | 2024-06-03 14:49 | W.ANESPOSTOP ---
Postoperative Evaluation Date, Time and Location Date Performed: 06/03/24 Time Performed: 14:50 Patient Location: PACU Vital Signs Most Recent Imported Vital Signs: Most Recent Vital Signs Temp Pulse Resp BP Pulse Ox 36.6 C 82 16 163/89 H 100 06/03/24 14:35 06/03/24 10:50 06/03/24 10:50 06/03/24 10:50 06/03/24 10:50 Pain Score Most Recent Pain Score: Most Recent Pain Score Pain Level 8 06/03/24 14:35 Assessment Mental Status: Awake (Alert & Oriented to Patient Baseline) Airway and Respiratory Function: Patent airway with normal (patient baseline) respiratory exam Cardiovascular Function: Hemodynamically Stable Hydration Status: Adequately Hydrated Nausea & Vomiting: No Nausea or Vomiting Pain: Pain is tolerable per patient Peripheral Nerve Block: Patient did not receive a nerve block
[2024-06-03] MEDS: Normal Saline Flush 10 ML SYR IV ×2 (15:46→22:08)
[2024-06-03] MEDS: HYDROmorphone 2 MG/ML SYR IVP (15:48)
--- NOTE | 2024-06-03 16:50 | ROE_ITS ---
Date of service: 06/03/24 Time of Service: 12:15 Operative Note Operative Note DATE OF PROCEDURE: 06/03/24 PRE-OP DIAGNOSIS: Right Hip Osteoarthritis POST-OP DIAGNOSIS: same PROCEDURE: Right Anterior Total Hip Arthroplasty with Intraoperative Navigation SURGEON: Rg Haque SEWER PIPE SORTER: Ina Luciano ANESTHESIA TYPE: Spinal Refer to Anesthesia Record ESTIMATED BLOOD LOSS: 300 PATHOLOGY: none sent TOURNIQUET TIME: 0 COMPLICATIONS: None Patient was transported to: PACU Patient's condition: stable Implants: 1. Depuy [place] Acetabular Component, 52mm 2. Depuy Acetabular Liner, [id number] 3. Depuy Actis Standard Collared Femoral Stem, Size 6 4. Depuy Altrx Ceramic Femoral Head, Size 36+1.5mm Indications: I have seen Ariane in clinic for symptoms of hip arthritis, confirmed with radiographic findings. She has exhausted nonoperative methods and was having significant limitations in daily function and desired better function and less pain. She had a previous left hip replacement which is doing very well and changed her life and that she wanted to proceed with a right hip replacement. I discussed the technical details of a hip replacement. I explained the risks of the procedure to include, but not limited to, bleeding, infection, pain, stiffness, fracture, damage to nerves and vessels, damage to muscles and tendons, loosening, instability, leg length inequality, need for repeat procedure, blood clot and cardiopulmonary demise. Despite these risks, Ariane elected to proceed. Findings: There was notable focal chondromalacia centrally and slightly superiorly the femoral head as well as of the superior acetabulum. Procedure Description: Ariane was greeted in the preoperative holding area where the correct side was identified and marked. The consent was reviewed with the patient and signed. The history and physical was updated. All questions were answered. She was taken back to the operating room. A spinal anesthestic was then administered. The feet were wrapped with cast padding and Coban and then placed into the boot liners and then into the boots. Care was taken to protect the skin and make sure the heels were fully down and the boots were stable. The patient was then positioned onto the HANA table. Both legs were held in a neutral position. SCDs were applied. The patient was then slid down onto a peroneal post. Prophylactic antibiotics in the form of Cefazolin were administered. 1g of Tranxemic Acid was given intravenously within 30 minutes of incision. The right leg was then prepped with Chloraprep and draped in a standard fashion. A second prep with Chloraprep was performed prior to placement of a shower-curtain type drape with Iodine impregnated skin protection. A timeout to confirm correct identity, side and site, procedure, allergies, anesthesia, and medical concerns was performed. An obliquely oriented incision was made starting lateral to the ASIS and running distal over the Tensor Fascia Tona (TFL) muscle belly toward the fibular head, approximately 10cm. The skin and soft tissue was dissected sharply, through Ulises?s fascia, and to the fascia of the TFL. At this point it was obvious that she was having some reaction to the incision and therefore she was converted to a general anesthetic. Once this was completed, dissection was continued. The fascia of the TFL was incised with a new knife just above any perforators from the IT band. The TFL muscle belly was bluntly dissected away from the fascia and moved laterally. The fat between TFL and rectus was identified to ensure the dissection was not within the TFL. Blunt dissection created space between abductors and the capsule and retractor was placed over the lateral femoral neck. The fibers of the rectus femoris tendon were identified and these were freed from the anterior capsule. A second cobra retractor was placed around the medial femoral neck. The TFL was further retracted laterally to show the deep fascia. Careful dissection through this layer identified three main crossing vessels of the lateral femoral circumflex. These were cauterized in multiple locations and then cut without any noticeable bleeding. The TFL was further released bluntly from the deep fascia to expose anterior hip capsule and fat The soft tissue orthopaedic retractor was then placed beneath the TFL and against sartorius and medial soft tissues to protect and retract the soft tissues. A T-capsulotomy was then performed starting at the superior lateral acetabulum and moving distally to the intertrochanteric ridge. These capsular flaps were tagged with a No. 1 Ethibond and elevated from within. The capsular flaps were released to the shoulder of the lateral neck and to the lesser trochanter to give excellent visualization of the proximal femur. A neck osteotomy was performed using an oscillating saw based on preoperative templates. This cut started in the shoulder and of the lateral neck and exited medially. The saw was at all times directed medially to avoid injury to the greater trochanter. Gross traction was applied to the leg and the osteotomy opened. The femoral head was removed with a corkscrew, making sure to protect the TFL on its exit. Traction was released after head removal. The femoral head was inspected and showed somewhere centrally and superiorly. The femoral head was measured on the back table to determine the starting reamer size. Portions of the rectus obscuring visualization were minimally elevated off the superior acetabulum. An anterior retractor was placed over the anterior wall between capsule and labrum and attached to the Gripper retraction system. The femur was rotated to 90 degrees and medial capsule was fully released until the lesser trochanter was palpable and visible; the femur was returned to 30 degrees. A posterior retractor was placed similarly between capsule and labrum. This provided excellent visualization. The contents of the cotyloid fossa were removed with electrocautery and the labrum was removed with a knife. There was a notable floor osteophyte. There was significant chondromalacia of the superior acetabulum. Acetabular reaming began with a 46mm reamer. This first reaming was directed anterior to posterior and medial to get down to the true floor. This was inspected and reamed until the true floor was reached. The anterior retractor was then released and entry and exit was provided by traction on the capsular flaps. I then reamed sequentially up to a 52mm reamer where good fit was obtained. The larger reamers were oriented based on anatomical reference of the anterior and lateral lopez to ensure proper abduction and anteversion. Positioning and size was confirmed with the fluoroscopy. A 48mm Depuy Malta acetabular component was selected. The acetabulum was reamed around the periphery with the selected acetabular size to prevent a rim fit. The deep tissues were irrigated. The acetabular component was then impacted in a position of about 40-45 degrees of abduction and 15-20 degrees of anteversion, using the patient?s anatomy as the ultimate landmark. Fluoroscopy was used to confirm this. There was excellent commercial shrimping captain of the acetabular component and the inserting handle was removed. A straight club steward handle was also utilized to impact the acetabular component. There still appeared to be some space between the floor the component and the reamed acetabular floor. However, on direct inspection of the cup there was not noted to be this appearance by looking through the central hole. The acetabular liner, Depuy [id number] polyethylene liner, was inserted and lined up with the tines of the acetabular component. There was no soft tissue interposition. The liner was then impacted into position and confirmed to be well-seated. A portion of the luz-articular cocktail was then injected around the acetabulum into the capsule and periosteum. This cocktail consisted of 123mg of Ropivacaine, 0.25mg of Epinephrine, 0.04mg of Clonidine, and 15mg of Ketorolac, diluted to 50cc. The leg was rotated to 120 degrees. Any remaining medial capsule was released until the lesser trochanter was easily palpable. A retractor was placed medially. The lateral capsule was further released into the shoulder to allow access to the greater trochanter. A Feldman retractor was placed over the greater trochanter which allowed the trochanter to flip in front of the capsule for excellent exposure. The leg was brought down into maximal extension and 20 degrees of adduction while ensuring there was no impingement on the acetabulum. Any remnant capsule within the trochanter was released. Piriformis and obturator externis were identified and protected. There was excellent access to the proximal femur. The lateral neck remnant was removed with a rongeur. A blunt canal probe was used to identify the canal and trajectory for later broaching. A box osteotome initiated the broach course. A small curved rasp and a curved curette were used to work laterally. Broaching then began with a starter Actis broach. This was inserted manually around the trochanter and into the canal before mallet blows. The broach was seated to a few millimeters below the cut level based on the neck cut and the preoperative template. Sequential broaching was continued with the [employer]cise pneumatic broaching device until a tight fit was obtained with good rotational control of the femur. A trial standard neck was inserted along with a +1.5 trial head. The leg was brought out of extension and adduction and then reduced with traction and internal rotation. The leg was stable anteriorly in a position of 30 degrees of extension and 90 degrees of external rotation. Fluoroscopy was used to ensure there was no fracture and the stem was seated well. Leg lengths were checked with an AP pelvis and pelvic reference points. Cavis microcaps navigation system was used to confirm appropriate positioning and leg length and offset. Once content with the desired offset and leg lengths, the leg was brought back into extension, external rotation and adduction. The periosteum and surrounding tissue was injected with remaining portion of the luz-articular cocktail. The proximal femur was irrigated as well as the deep tissues. The Depuy Actis standard collared stem, size 6, was then manually inserted into the proximal femur making sure to control rotation. It was then malleted into position with light blows, giving breaks to allow bone expansion and decrease risk of fracture. The selected Depuy Altrx Ceramic Head, size 36+1.5mm, was then placed onto the clean and dry trunnion and secured with impaction onto the tapered fit. The leg was brought back out of extension and adduction and reduced with traction and internal rotation. Stability was confirmed with no shuck at 90 degrees of external rotation and 30 degrees of extension. No impingement through range of motion arc. Final x-ray images were obtained with fluoroscopy to confirm adequate positioning and no intraoperative fracture. The deep tissues were thoroughly irrigated with Surgiphor, betadine solution. This was allowed to sit in the wound for 3 minutes before being thoroughly irrigated out with normal saline. The capsule was then reapproximated with the previously placed Ethibond sutures. The TFL fascia was finally closed with a No. 2 Stratafix, barbed suture. Deep tissues were then reapproximated with 0 Vicryl and a running 2-0 Vicryl. The skin was closed with a running 4-0 Monocryl in a subcuticular fashion. This was reinforced with skin glue. A Mepilex silver dressing was applied. At the end of the case, all counts were correct. Ariane was transferred to the hospital bed without difficulty and suffering no apparent complication. Ariane has a good prognosis. Physical therapy will start today and without restrictions, weight-bearing as tolerated. Aspirin 81mg BID will be used for DVT prophylaxis.
--- NOTE | 2024-06-03 17:19 | PT.INNT ---
PT Notes Visit Reasons: Right hip DJD Pt. approached for PT evaluation at 5:05pm. Pt supine in bed restless BLE movements noted as entered room. Pt stated to this PT no get out after identifiying self. Nurse notified. PT will approach in the morning for assessment in anticipation of discharge to home.
[2024-06-03] MEDS: Ketorolac 15 MG/ML VIAL IVP (17:57)
[2024-06-03] MEDS: ceFAZolin 1 GM/50 ML BAG IVPB (17:58)
[2024-06-03] MEDS: Prochlorperazine 10 MG/2 ML VIAL 5 MG IVP (22:08)
[2024-06-03] MEDS: Acetaminophen 500 MG TAB PO (23:47)
[2024-06-04] MEDS: ceFAZolin 1 GM/50 ML BAG IVPB ×2 (02:13→10:31)
[2024-06-04] MEDS: Ketorolac 15 MG/ML VIAL IVP ×3 (02:13→17:26)
[2024-06-04 03:03] VITALS: BP 97/52; PULSE 79; RESP 16; TEMP 36.3; O2SAT 94
--- NOTE | 2024-06-04 06:43 | NUR.NOTE ---
Nursing Note: Pt refused all HS medications. Stated she would resume them once home.
[2024-06-04] MEDS: HYDROmorphone 2 MG/ML SYR IVP ×2 (07:33→16:28)
[2024-06-04 08:09] VITALS: BP 124/50; PULSE 75; RESP 18; TEMP 36.2; O2SAT 90
[2024-06-04] MEDS: Dexamethasone 4 MG TAB 8 MG PO (09:26)
[2024-06-04] MEDS: Aspirin E.C. 81 MG TABEC PO (09:26)
[2024-06-04] MEDS: Calcium Carbonate 1.5 GM TAB PO (09:26)
[2024-06-04] MEDS: Sucralfate 1 GM TAB PO (09:26)
[2024-06-04] MEDS: Esomeprazole 40 MG CAPCR 20 MG PO (09:26)
[2024-06-04] MEDS: Gabapentin 300 MG CAP PO (09:27)
[2024-06-04] MEDS: busPIRone 15 MG TAB PO (09:27)
[2024-06-04] MEDS: Atorvastatin 10 MG TAB PO (09:28)
[2024-06-04] MEDS: Acetaminophen 500 MG TAB PO ×2 (09:28→15:09)
--- NOTE | 2024-06-04 09:55 | IN_ITS ---
PT Notes Visit Reasons: Right hip DJD Physical Therapy Day Surgery Initial Evaluation Date:06/04/2024 Referring Doctor: dr Haque PT Orders: PT CONSULT: PT evaluation and treat s/p Ortho surgery Precautions: Activity as tolerated Patient Profile/Admitting Diagnosis: Patient is a 64-year-old female admitted status post elective right ANDREZ by Dr. Haque on 06/03/2024 under general anesthesia. Postop complicated by pain. PMHX: L ANDREZ 03/2024, PTSD, Anxiety, Chronic Ulcerative colitis, CKD stage II Social History/Home Situation: lives with her in 1 story home with 4 3 steps with rail to enter. Independent ADL and ambulation with FWW. Independent on stairs with cane and rail, Equipment Owned/DME: FWW, tub seat , grab bars at shower. Cane Subjective: Pt reports this surgery is more painful than her other hip in March. She reports light sensitivity and claustrophobic with bedside table in front of her. Objective: [] General Observation:Pt presents in darkened room, anxious with Ice to right anterior hip , IV in place Mental Status:A+Ox3 Pain: right hip 5/10 after pain meds ROM: [] Right Upper Extremity: WNL Left Upper Extremity: WNL Right Lower Extremity: hip flexion to 90 degrees, abduction 15 degrees, knee and ankle WNL Left Lower Extremity: WNL Strength: [] Right Upper Extremity: 5/5 Left Upper Extremity: 5/5 Right Lower Extremity: Hip flexion 3-/5, abduction 2+/5, knee extension 3/5, flexion 2+/5, ankle 3/5 Left Lower Extremity: 3+/5 hip, 4/5 knee and ankle Sensation: intact Bed Mobility/Transfers: [] Supine to sit minimal Assist with HOB up and increase time Sit to stand CGA from 20 height Stand to sit CGA Bed to chair CGAwith FWW Gait:pt ambulates with FWW 15 feet with step to pattern, decreased step length and height on right, increase lateral weight shift of trunk, excessive weight bearing through upper extremities to decrease weight bearing through RLE Stairs : unable Balance: [] Static Sitting: Normal Dynamic Sitting:good Static Standing: Fair + with BUE support Dynamic Standing:Fair with BUE support Special Tests: [] Mobility Limitations Standardized Measure [] [facility]-P[facility] 6 clicks Basic Mobility Inpatient Short Form: [] Raw Score:14 CMS Score: 62.29% disability Informed Consent/Education: Patient instructed in purpose of PT consult. Packet containing ANDREZ exercise protocol has been given to patient. Education and training on initial set of exercises that can be done at home have been completed with patient. Assessment: Pt is 64yo female presenting s/p R ANDREZ on 06/03/24 with increased pain and anxiety. Patient presents with clinical signs and symptoms consistent with current/admitting diagnoses that have resulted to mobility limitations, gait instability, generalized weakness, and impairment of motor control as demonstrated by the following impairment level findings: 1. Decreased strength to right hip major muscle groups 2. Impaired standing balance 3. Limitation of joint range of motion in right hip Impairments are contributing to the following functional limitations: 1. Inability to safely ambulate without assistive device 2. Increase completion time for mobility ADL performance 3. Increased fall risk 4. Inability to safely manage stairs without assistance. Patient is assessed as a moderate complexity based on the following: History: [id number] with impairment level findings, functional limitations, and past medical history as indicated above Examination: Demonstrable impairment in strength, balance, and mobility level with underlying impairments and functional limitations as documented above Presentation: evolving Decision Making: moderate Goals: 1. supervision bed mobility 2. supervision transfers with FWW 3. supervision with FWW amb >200 feet level surfaces 4. supervision on 3 x3 steps with rail and cane to safely enter and exit her home Plan of Care/Treatment Plan: PT evaluation and 2-3 treatment session only for functional mobility training using recommended AD and for HEP instruction. DISCHARGE RECOMMENDATIONS: Home with PT TREATMENT CODE/TIME:62519,[id number]/ [id number], [id number] Thank you for the opportunity to participate in the care of this patient. Please sign an return this page within 30 days if you agree with the above POC. Thank you! Physician Signature Date [facility]
[2024-06-04 11:29] VITALS: BP 111/59; PULSE 70; RESP 17; TEMP 36.8; O2SAT 97
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
--- NOTE | 2024-06-04 13:59 | PHA.REVIEW2 ---
Pharmacy Admission Review Admission Clinical Review Admission Pharmacy Review: History of total left hip arthroplasty (Acute 04/02/24) ciprofloxacin HCl (From Cipro) Allergy (Mild, Verified 06/03/24 11:00) Other (See Comment) amitriptyline Allergy (Verified 06/03/24 11:00) Other (See Comment) amoxicillin Allergy (Verified 06/03/24 11:00) Other (See Comment) duloxetine HCl (From Cymbalta) Allergy (Verified 06/03/24 11:00) Other (See Comment) erythromycin base Allergy (Verified 06/03/24 11:00) Other (See Comment) pregabalin (From Lyrica) Allergy (Verified 06/03/24 11:00) Other (See Comment) Sulfa (Sulfonamide Antibiotics) Allergy (Verified 06/03/24 11:00) Other (See Comment) venlafaxine HCl (From Effexor) Allergy (Verified 06/03/24 11:00) Other (See Comment) azithromycin Adverse Reaction (Intermediate, Verified 06/03/24 11:00) Other (See Comment) Resuscitation Status Full Code Height 5 ft 4 in Weight 115 kg Comments Comments/Follow Ups: Remaining overnight for observation as patient is still in pain, per case management note. Patient is POD#1 Pharmacy Admission Review Renal Dosing Medications needing adjustments: Reviewed (CrCl 68.85 mL/min ) List of meds needing interventions: Current medications are okay Anticoagulation DVT Prophylaxis: Reviewed (SCDs/TEDs) Opiate Usage Evaluate Pain Scale/Pains Meds: Reviewed (PRN hydromorphone - 2 doses given) Scheduled Bowel Reg ordered if on Opiates?: No Relevant Labs Electrolytes, C-Reactive P, ESR: Reviewed (No new labs for today) Cardiac Review Cardiac Review: Blood Pressure 111/59 1129 Blood Pressure 124/50 0809 Blood Pressure 97/52 0303 BP, HR, EF%: Reviewed (HR WNL) QTc Review QTc: Reviewed (No EKG on file) IV to PO Switch IV Medications: Reviewed (hydromorphone, ketorolac, and prochlorperazine) Home Meds Home Med List reviewed: Intervened Relevent Home Meds Not ordered & why?: Advair (substituted with Symbicort per pharmacy protocol), Epipen (PRN) and Remicade (monthly infusion) Order pending for patients vitamin D2. Takes it twice weekly, called nursing to ask what days of the week patient takes it. Waiting to hear back. Current Meds Current Medication Order Review: Intervened Comments: Changed timing of ibuprofen order to begin after completion of scheduled ketorolac IVP Comments Comments/Follow Ups: Remaining overnight for observation as patient is still in pain, per case management note. Patient is POD#1
[2024-06-04 15:28] VITALS: BP 150/84; PULSE 74; RESP 16; TEMP 36.8; O2SAT 97
--- NOTE | 2024-06-04 15:52 | PT.INTREAT ---
PT Notes Visit Reasons: Right hip DJD Inpatient Physical Therapy Treatment Note [facility] Date: June 04, 2024 PRECAUTIONS: IV right hand, standard, activity as tolerated SUBJECTIVE: Patient reports feeling more confident with her ability as compared to morning. OBJECTIVE: Patient alert IV infusing and motivated to participate in attempt ambulation for greater distance and bed mobility training with use of cane ? PAIN: 3/10 right hip ? Therapeutic Activities (68425a[]): Direct one-on-one instruction in dynamic activities to improve functional performance. ? BED MOBILITY/TRANSFERS? Supine-sit: CGA with use of cane to assist right lower extremity off edge of bed? Sit-supine: CGA with use of cane to assist right lower extremity onto bed? Sit-stand: SBA?may I think dictating standing IN Stand-sit: SBA ? Bed-Chair: SBA with FWW? Chair-bed: SBA with FWW Provided skilled cues and instruction on performance and technique throughout. ? Therapeutic Exercises (85019): Direct one-on-one instruction in therapeutic exercises to develop strength, endurance, range of motion and flexibility. ? Exercises 10 reps ? supine heel slides, abduction, qs seated marching, LAQ Ambulation ? Assistive Device: FWW? Weight bearing: As tolerated Assist: SBA ? Distance: 30 feet x 2 ? Deviation: Decreased step height and length right lower extremity in adequate knee flexion right during swing phase, circumduction right lower extremity.? Provided skilled instruction in proper exercise performance Provided skilled manual cues to facilitate proper muscle recruitment and/or form: [] ASSESSMENT: Patient demonstrates significant improvement in functional ability in this session as compared to morning. Patient able to utilize cane to assist in right lower extremity AB and adduction for on and off bed. Attempted to perform stair however patient unable to lift lower extremity to place on step at this time. PLAN: Continue strengthening and functional mobility training until discharge to home TREATMENT CODE/TIME: 06763 x 2, 38642/1420?1500 DISCHARGE RECOMMENDATION: Home with PT
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
== END 2024-06-04 17:43 | disposition home or self-care (01) ==
LOC: SUR 11:22 → MS 15:38
PROVIDERS: Admitting Provider Student in an Organized Health Care Education/Training Program; PCP Nurse Practitioner Family; Visit Provider Student in an Organized Health Care Education/Training Program
PROC: (CPT 27130; principal; 2024-06-03 13:00)
DX: M16.11 Unilateral primary osteoarthritis, right hip (principal); Z68.41 Body mass index [BMI] 40.0-44.9, adult; K51.90 Ulcerative colitis, unspecified, without complications; F41.9 Anxiety disorder, unspecified; F43.10 Post-traumatic stress disorder, unspecified; N18.2 Chronic kidney disease, stage 2 (mild); J45.909 Unspecified asthma, uncomplicated; E55.9 Vitamin D deficiency, unspecified; E66.9 Obesity, unspecified; I12.9 Hypertensive chronic kidney disease with stage 1 through stage 4 chronic kidney disease, or unspecified chronic kidney disease; F32.A Depression, unspecified; K21.9 Gastro-esophageal reflux disease without esophagitis; M79.7 Fibromyalgia; E78.5 Hyperlipidemia, unspecified; F10.20 Alcohol dependence, uncomplicated; L28.0 Lichen simplex chronicus; F11.20 Opioid dependence, uncomplicated; G47.00 Insomnia, unspecified; Z96.642 Presence of left artificial hip joint; F17.210 Nicotine dependence, cigarettes, uncomplicated
CPT/HCPCS: 27130; 20985; 96365; 96366; 96375; 96376; 97110; 97162; 97530; 73501; C1776; G0378; J0690; J0780; J1170; J1720; J1885; J2060; J2250; J2401; J2405; J2704; J3010; J8540

== ENCOUNTER 2024-06-16 11:39 | Outpatient (CLI) | payer MEDICARE, OTHER, SELFPAY ==
--- NOTE | 2024-06-16 10:45 | DI.RAD_ITS ---
Exam(s) XR HIP RT COMPLETE AP PELVIS EXAM: XR HIP RT COMPLETE AP PELVIS CLINICAL HISTORY: 1ST POST OP R ANDREZ. TECHNIQUE: 2D digital imaging was performed. Two images were obtained. AP pelvis and right lateral hip views were obtained. COMPARISON: CR XR HIP RT COMPLETE AP PELVIS from 05/05/2024 XA XR HIP RT IN OR from 06/03/2024 FINDINGS: BONES: There are stable post operative changes of a right total hip replacement present. No fracture or dislocation. JOINTS: The orthopedic hardware is in good position. No evidence of hardware loosening. The patient has had a prior left total hip replacement which appears stable. SOFT TISSUE: Normal. IMPRESSION: Stable right total hip replacement. DATA REPOSITORY: RADIATION DOSE DELIVERED:
== END 2024-06-16 11:40 | disposition home or self-care (01) ==
LOC: DIORS 11:39
PROVIDERS: PCP Nurse Practitioner Family; Referring Provider Nurse Practitioner Family; Visit Provider Physician Assistant
DX: Z96.641 Presence of right artificial hip joint (principal); Z47.1 Aftercare following joint replacement surgery
CPT/HCPCS: 73502

== ENCOUNTER 2024-06-25 01:59 | Outpatient (RCR) | payer MEDICARE, OTHER, SELFPAY ==
[2024-05-25 00:01] VITALS: BP 135/84; PULSE 106; RESP 17; TEMP 36.4
[2024-06-25] MEDS: Loratidine 10 MG TAB PO (11:35)
[2024-06-25] MEDS: inFLIXimab 600 MG in Normal Saline 250 ML 125 MG IVPB (11:35)
[2024-06-25] MEDS: Normal Saline Flush 10 ML SYR IVP (11:35)
[2024-06-25 11:40] VITALS: BP 152/82; PULSE 66; RESP 18; TEMP 36.4; O2SAT 97
[2024-06-25 11:52] LABS: Abs Immature Grans 0.01 10^3/uL (0.0-0.06); Absolute Basophil Count 0.08 10^3/uL (0.0-0.2); Absolute Eosinophil Count 0.26 10^3/uL (0.0-0.7); Absolute Lymphocyte Count 3.05 10^3/uL (1.2-3.4); Absolute Monocyte Count 0.59 10^3/uL (0.1-0.8); Basophils % 1.2 %; Eosinophils % 3.9 %; HCT 38.9 % (36.0-46.0); HGB 12.4 g/dL (11.2-15.7); Immature Grans % 0.1 %; Lymphocytes % 45.6 %; MCH 29.6 pg (27.0-33.0); MCHC 31.9 % (32.0-36.0); MCV 93 fL (80-95); MPV 9.2 fL (8.0-11.0); Monocytes % 8.8 %; Neutrophils % 40.4 %; Platelet Count 395 10^3/uL (130-400); RBC 4.19 10^6/uL (3.93-5.22); RDW 13.7 % (11.7-14.6); RDW-SD 46.7 fL; WBC 6.69 10^3/uL (4.4-10.8)
[2024-06-25 12:01] VITALS: BP 139/80; PULSE 67; RESP 17; TEMP 36.4; O2SAT 98
[2024-06-25 12:12] LABS: ALT 24 U/L (14-59); AST 25 U/L (15-37); Albumin 3.3 g/dL (3.4-5.0); Alkaline Phosphatase 115 U/L (46-116); Anion Gap 6.2 mmol/L (3-11); BUN 15 mg/dL (7-18); Bilirubin, Total 0.41 mg/dL (0.2-1.0); CO2 28.8 mmol/L (21.0-32.0); CREATININE 0.9 mg/dL (0.55-1.02); Calcium 9.3 mg/dL (8.5-10.1); Chloride 99 mmol/L (98-107); Estimated GFR 70.51 (mL/min/1.73m2); Glucose 96 mg/dL (74-106); Potassium 4.4 mmol/L (3.5-5.1); Sodium 134 mmol/L (136-145); Total Protein 7.3 g/dL (6.4-8.2)
[2024-06-25 12:19] VITALS: BP 144/83; PULSE 77; RESP 18; TEMP 36.3; O2SAT 98
[2024-06-25 12:34] VITALS: BP 131/78; PULSE 80; RESP 16; TEMP 36.3; O2SAT 96
[2024-06-25 12:49] VITALS: BP 119/84; PULSE 74; RESP 18; TEMP 36.3; O2SAT 98
[2024-06-25 13:21] VITALS: BP 110/69; PULSE 78; RESP 17; TEMP 36.4; O2SAT 97
[2024-06-28 01:50] LABS: Infliximab 11 mcg/mL (<=5.0)
== END 2024-07-24 23:59 | disposition home or self-care (01) ==
LOC: INF 01:59
PROVIDERS: Internal Medicine; PCP Nurse Practitioner Family; Visit Provider Family Medicine
DX: K51.911 Ulcerative colitis, unspecified with rectal bleeding (principal)
CPT/HCPCS: 80053; 82397; 96365; 96366; 85025; 86140; J1745

== ENCOUNTER → 2024-07-17 10:47 | Outpatient (BNVA) | payer MEDICARE, OTHER, SELFPAY | PROVIDERS: PCP Nurse Practitioner Family; Visit Provider Student in an Organized Health Care Education/Training Program | DX: Z47.1 Aftercare following joint replacement surgery (principal); Z96.642 Presence of left artificial hip joint; Z96.641 Presence of right artificial hip joint | CPT/HCPCS: 99024 ==

== ENCOUNTER → 2024-08-25 14:17 | Outpatient (BNVA) | payer MEDICARE, OTHER, SELFPAY | PROVIDERS: PCP Nurse Practitioner Family; Referring Provider Nurse Practitioner Family; Visit Provider Student in an Organized Health Care Education/Training Program | DX: Z47.1 Aftercare following joint replacement surgery (principal); Z96.641 Presence of right artificial hip joint; M70.61 Trochanteric bursitis, right hip | CPT/HCPCS: 99024 ==

== ENCOUNTER → 2024-10-23 14:44 | Outpatient (BNVA) | payer MEDICARE, OTHER, SELFPAY | PROVIDERS: PCP Nurse Practitioner Family; Referring Provider Nurse Practitioner Family; Visit Provider Nurse Practitioner Adult Health | DX: G44.86 Cervicogenic headache (principal); M54.2 Cervicalgia | CPT/HCPCS: 99215 ==

== ENCOUNTER → 2024-11-24 13:51 | Outpatient (BNVA) | payer MEDICARE, OTHER, SELFPAY | PROVIDERS: PCP Nurse Practitioner Family; Referring Provider Nurse Practitioner Family; Visit Provider Student in an Organized Health Care Education/Training Program | DX: Z47.1 Aftercare following joint replacement surgery (principal); Z96.641 Presence of right artificial hip joint; M70.61 Trochanteric bursitis, right hip | CPT/HCPCS: 99213 ==

== ENCOUNTER → 2024-12-24 14:06 | Outpatient (BNVA) | payer MEDICARE, OTHER, SELFPAY | PROVIDERS: PCP Nurse Practitioner Family; Referring Provider Nurse Practitioner Family; Visit Provider Nurse Practitioner Adult Health | DX: G44.86 Cervicogenic headache (principal); G43.909 Migraine, unspecified, not intractable, without status migrainosus | CPT/HCPCS: 99214 ==

== ENCOUNTER 2025-01-22 14:29 | Outpatient (CLI) | payer MEDICARE, OTHER, SELFPAY ==
[2025-01-22 14:39] VITALS: BP 147/98; PULSE 84; RESP 20; TEMP 36.6; O2SAT 96
[2025-01-22 15:16] VITALS: PULSE 107; O2SAT 97
[2025-01-22 15:20] VITALS: PULSE 118; O2SAT 98
--- NOTE | 2025-01-22 15:30 | PDOC.PAIN ---
Date of service: 01/22/25 Time of Service: 15:30 US Guided Injections Type of Ultrasound Guided Injection: Middle back Left Quadratus muscle Trigger Point Injection Pre-Procedural Evaluation Tenderness to palpation over the left Quadratus lumborum muscle Referral Patient has been referred to the [facility] for Left Quadratus muscle Middle back Trigger Point Injection for a chief complaint of Pain at the left Quadratus Lumborum muscle Pre-Procedural Pain Score Pre-procedural pain score: 5/10 Reason for Exam Pain to the left Quadratus Lumborum muscle Patient Interview Patient was interviewed and medical record reviewed: Yes There were no contraindications to performing an US guided procedure. Risks,expected side effects, potential benefits were reviewed. The patient consent form was signed and witnessed. Standard time out procedure was performed. Patient Safety No skin issues at the site of the proposed injection Procedure Description No sedation given for procedure Patient was placed in the prone position and the following Pulse Ox applied. Pre-Procedure ultrasound scanning performed using a Linear 9 MHz probe Site Preparation Chloroprep Local Anesthesia Skin and subcutaneous tissues anesthetized with: 1 mL of Lidocaine 2%. A 21 G 3.5 Pajunk ultrasound needle was placed under live US guidance using an in-plane approach to the target area. After visualization of the needle tip at the target area Depo-Medrol 40mg per cc and Lidocaine 2% were used. Total of Injectate/Medication Note: 1 cc of Depomedrol (40 mg/cc) and 6 cc of 2% Lidocaine Negative aspiration for blood. [place] were removed without difficulty. Ultrasound images were captured and stored. Patient Mental Status Patient was alert and awake during procedure Vital Signs Vital signs were stable throughout the procedure and recorded by nursing. Follow Up/Discharge Follow up plans and appointments were discussed with patient. Post procedure instruction was given as documented in nursing documentation. Discharge criteria met and patient discharged from [facility]: Yes Post Procedure Pain Post Procedure Pain: 2/10 Patient tolerated procedure well Procedure Outcome: Successful Non US Guided Injections Procedure Description Patient was placed in the prone position Post Procedure Pain Post Procedure Pain: 2/10 Coding Conscious Sedation used for procedure: No CPT Codes: TPI Single/Multi 1 or 2 Muscles - 96898 ([id number] ~G) left Additional Codes: Visualization of the needle tip - Ultrasound images captured/stored: Yes ([id number]) Date of Service (15272) Date of service: 01/22/25
[2025-01-22] MEDS: methylPREDNISolone ACETATE 40 MG/ML VIAL IJ (15:45)
[2025-01-22] MEDS: Nerve Block Tray 1 EACH MC (15:45)
[2025-01-22] MEDS: Lidocaine 2% Multi-Dose 20 ML VIAL IJ (15:46)
== END 2025-01-22 14:30 | disposition home or self-care (01) ==
LOC: PC 14:30
PROVIDERS: PCP Nurse Practitioner Family; Visit Provider Preventive Medicine Occupational Medicine
DX: M54.6 Pain in thoracic spine (principal); M54.50 Low back pain, unspecified; M79.18 Myalgia, other site
CPT/HCPCS: 20552; 76942; J1010; J2003

== ENCOUNTER → 2025-02-25 14:23 | Outpatient (BNVA) | payer MEDICARE, OTHER, SELFPAY | PROVIDERS: PCP Nurse Practitioner Family; Referring Provider Nurse Practitioner Family; Visit Provider Nurse Practitioner Adult Health | DX: G44.86 Cervicogenic headache (principal); G43.909 Migraine, unspecified, not intractable, without status migrainosus; I12.9 Hypertensive chronic kidney disease with stage 1 through stage 4 chronic kidney disease, or unspecified chronic kidney disease | CPT/HCPCS: 99215 ==

== ENCOUNTER 2025-03-31 13:32 | Outpatient (CLI) | payer MEDICARE, OTHER, SELFPAY ==
--- NOTE | 2025-03-31 12:45 | DI.RAD_ITS ---
Exam(s) XR SHOULDER RT COMPLETE 2+V EXAM: XR SHOULDER RT COMPLETE 2+V CLINICAL HISTORY: RIGHT SHOULDER PAIN. TECHNIQUE: 2D digital imaging was performed. COMPARISON: No exams were available for comparison FINDINGS: Two views: No evidence of acute fracture or dislocation or abnormal soft tissue calcifications. The subacromial space does not appear significantly diminished. There are moderate degenerative changes in the glenohumeral joint. There is mild joint space narrowing. There is also an osteophyte on the inferior ar ticular surface of the humeral head. There is no opposing osteophyte on the inferior articular surface of the osseous glenoid. There are no obvious degenerative subarticular cysts in the osseous glenoid. There are mild degenerative changes noted in the AC joint. IMPRESSION: Degenerative changes are noted in the right glenohumeral joint, as described above. DATA REPOSITORY: RADIATION DOSE DELIVERED:
== END 2025-03-31 13:33 | disposition home or self-care (01) ==
LOC: DIORS 13:33
PROVIDERS: PCP Nurse Practitioner Family; Referring Provider Nurse Practitioner Family; Visit Provider Student in an Organized Health Care Education/Training Program
DX: M25.511 Pain in right shoulder (principal); M19.011 Primary osteoarthritis, right shoulder; N18.2 Chronic kidney disease, stage 2 (mild); X58.XXXA Exposure to other specified factors, initial encounter
CPT/HCPCS: 99213; 73030

== ENCOUNTER 2025-04-24 11:18 | Outpatient (CLI) | payer MEDICARE, OTHER, SELFPAY ==
--- NOTE | 2025-04-24 10:45 | DI.RAD_ITS ---
Exam(s) XR KNEE RT 4V AP,LAT,WILBERT,PAT EXAM: XR KNEE RT 4V AP,LAT,WILBERT,PAT CLINICAL HISTORY: RIGHT KNEE PAIN. TECHNIQUE: 2D digital imaging was performed. Four views. COMPARISON: No exams were available for comparison FINDINGS: BONES: No acute fracture is present. No bony destructive lesion is seen. JOINTS: The knee is normally aligned. No joint effusion is seen. Femoral tibial joint spaces are maintained. There is mild narrowing of the lateral patellofemoral joint. There is lateral patellar tilt and mild lateral patellar subluxation. There is mild spurring and irregularity at the articular surface. SOFT TISSUE: Normal. IMPRESSION: Moderate degenerative changes of the patellofemoral joint. DATA REPOSITORY: RADIATION DOSE DELIVERED:
== END 2025-04-24 11:19 | disposition home or self-care (01) ==
LOC: DIORS 11:18
PROVIDERS: PCP Nurse Practitioner Family; Referring Provider Nurse Practitioner Family; Visit Provider Physician Assistant
DX: M25.561 Pain in right knee (principal); M17.11 Unilateral primary osteoarthritis, right knee
CPT/HCPCS: 20610; J7325; 73564

== ENCOUNTER 2025-05-11 15:03 | Outpatient (CLI) | payer MEDICARE, OTHER, SELFPAY ==
--- NOTE | 2025-05-11 11:45 | DI.RAD_ITS ---
Exam(s) XR HIP PELVIS ADULT BL EXAM: XR HIP PELVIS ADULT BL CLINICAL HISTORY: ANNUAL F/U L ANDREZ. TECHNIQUE: 2D digital imaging was performed. Three views. COMPARISON: CR XR HIP RT COMPLETE AP PELVIS from 06/16/2024 FINDINGS: BONES: No acute fracture is present. No bony destructive lesion is seen. JOINTS: Stable alignment of bilateral hip prostheses. No dislocation present. SI joints and pubic symphysis are unremarkable. SOFT TISSUE: Normal. IMPRESSION: Stable appearance of bilateral hip prostheses. DATA REPOSITORY: RADIATION DOSE DELIVERED:
== END 2025-05-11 15:04 | disposition home or self-care (01) ==
LOC: DIORS 15:04
PROVIDERS: PCP Nurse Practitioner Family; Visit Provider Physician Assistant
DX: M76.892 Other specified enthesopathies of left lower limb, excluding foot (principal); M76.31 Iliotibial band syndrome, right leg; M76.32 Iliotibial band syndrome, left leg; Z96.643 Presence of artificial hip joint, bilateral
CPT/HCPCS: 99213; 73521

== ENCOUNTER → 2025-05-13 15:09 | Outpatient (BNVA) | payer MEDICARE, OTHER, SELFPAY | PROVIDERS: PCP Nurse Practitioner Family; Referring Provider Nurse Practitioner Family; Visit Provider Nurse Practitioner Adult Health | DX: G44.86 Cervicogenic headache (principal) | CPT/HCPCS: 99214 ==

== ENCOUNTER → 2025-06-25 13:19 | Outpatient (BNVA) | payer MEDICARE, OTHER, SELFPAY | PROVIDERS: PCP Nurse Practitioner Family; Referring Provider Nurse Practitioner Family; Visit Provider Nurse Practitioner Adult Health | DX: G43.909 Migraine, unspecified, not intractable, without status migrainosus (principal); J45.909 Unspecified asthma, uncomplicated; I12.9 Hypertensive chronic kidney disease with stage 1 through stage 4 chronic kidney disease, or unspecified chronic kidney disease; N18.9 Chronic kidney disease, unspecified | CPT/HCPCS: 99214 ==

== ENCOUNTER 2025-08-17 11:59 | Outpatient (CLI) | payer MEDICARE, OTHER, SELFPAY ==
--- NOTE | 2025-08-17 10:45 | DI.RAD_ITS ---
Exam(s) XR HIP LT AP LAT ONLY EXAM: XR HIP LT AP LAT ONLY CLINICAL HISTORY: HISTORY OF HIP REPLACENTS. TECHNIQUE: 2D digital imaging was performed. Two images were obtained. AP and lateral views were obtained. COMPARISON: CR XR HIP PELVIS ADULT BL from 05/11/2025 FINDINGS: BONES: There are stable post operative changes of a left total hip arthroplasty present. No fracture or dislocation. JOINTS: The orthopedic hardware is in good position. No evidence of hardware loosening. SOFT TISSUE: Normal. IMPRESSION: Stable left total hip arthroplasty. DATA REPOSITORY: RADIATION DOSE DELIVERED:
--- NOTE | 2025-08-17 10:45 | DI.RAD_ITS ---
Exam(s) XR HIP RT AP LAT ONLY EXAM: XR HIP RT AP LAT ONLY CLINICAL HISTORY: ANNUAL F/U R ANDREZ. TECHNIQUE: 2D digital imaging was performed of the right hip. Two images were obtained. AP and lateral right hip views were obtained. COMPARISON: CR XR HIP PELVIS ADULT BL from 05/11/2025 FINDINGS: BONES: No acute fracture is present. No bony destructive lesion is seen. JOINTS: There are stable postsurgical changes of a right total hip arthroplasty. SOFT TISSUE: Normal. IMPRESSION: Stable right total hip arthroplasty. DATA REPOSITORY: RADIATION DOSE DELIVERED:
== END 2025-08-17 12:00 | disposition home or self-care (01) ==
LOC: DIORS 11:59
PROVIDERS: PCP Nurse Practitioner Family; Visit Provider Student in an Organized Health Care Education/Training Program
DX: Z47.1 Aftercare following joint replacement surgery (principal); Z96.643 Presence of artificial hip joint, bilateral
CPT/HCPCS: 99213; 73502